=== PATIENT | female | born 1950 | race American Indian/Alaskan Native ===

== ENCOUNTER 2019-01-31 09:30 | Emergency (ER) | payer MEDICARE ==
[2019-01-31 09:43] VITALS: BMI 24.7
--- NOTE | 2019-01-31 10:15 | ED PDOC ---
Arrival/HPI - General Chief Complaint: Upper Extremity Problem/Injury Time Seen by Provider: 01/31/19 09:30 Historian: Patient - History of Present Illness Narrative History of Present Illness (Text): 01/31/19 10:12 68-year-old female presents today with left elbow pain status post injury. Patient states she has been having some elbow pain for the past 3 weeks but yesterday she slipped and hit her elbow on the countertop. Patient is complaining of pain to the lateral aspect of the elbow worse with range of motion. Patient states she took one Tylenol yesterday for pain without improvement. Patient denies fevers or chills. She denies numbness weakness or tingling in the extremity. No other complaints Past Medical History - Provider Review Nursing Documentation Reviewed: Yes - Travel History Have you recently traveled outside [place] w/in the past 3 mons?: No - Reproductive Menopause: Yes - Cardiac Hx Hypertension: Yes - Hematological/Oncological Hx Anemia: Yes - Psychiatric Hx Substance Use: No - Surgical History Hx Open Heart Surgery: Yes Family/Social History - Physician Review Nursing Documentation Reviewed: Yes Family/Social History: Unknown Family HX Smoking Status: Never Smoked Hx Alcohol Use: No Hx Substance Use: No Allergies/Home Meds Allergies/Adverse Reactions: Allergies No Known Allergies Allergy (Verified 01/31/19 09:39) Home Medications: Home Meds Medication Instructions Recorded Confirmed Enalapril Maleate [Vasotec] 10 mg PO DAILY 01/31/19 01/31/19 Ferrous Sulfate [Feosol] 325 mg PO DAILY 01/31/19 01/31/19 Warfarin [Coumadin] 5 mg PO DAILY 01/31/19 01/31/19 Review of Systems - Review of Systems Constitutional: absent: Fatigue, Fevers Respiratory: absent: SOB, Cough Cardiovascular: absent: Chest Pain, Palpitations Gastrointestinal: absent: Abdominal Pain, Nausea, Vomiting Musculoskeletal: Arthralgias. absent: Back Pain Skin: absent: Rash, Pruritis Neurological: absent: Headache, Dizziness Psychiatric: absent: Anxiety, Depression Physical Exam Vital Signs Reviewed: Yes Vital Signs Temp Pulse Resp BP Pulse Ox 01/31/19 09:30 97.8 F 67 15 154/70 H 100 Temperature: Afebrile Blood Pressure: Hypertensive Pulse: Regular Respiratory Rate: Normal Appearance: Positive for: Well-Appearing, Non-Toxic, Comfortable Pain Distress: None Mental Status: Positive for: Alert and Oriented X 3 - Systems Exam Head: Present: Atraumatic Mouth: Present: Moist Mucous Membranes Neck: Present: Normal Range of Motion Respiratory/Chest: Present: Clear to Auscultation, Good Air Exchange. No: Respiratory Distress, Accessory Muscle Use Cardiovascular: Present: Regular Rate and Rhythm, Normal S1, S2. No: Murmurs Upper Extremity: Present: Normal ROM (+ pain with full flexion of elbow. ), NORMAL PULSES, Tenderness (left elbow; + ttp over lateral aspect; no edema, no erythema; no ecchymosis; sensation and distal pulses in tact. cap refill <2. ), Neurovascularly Intact, Capillary Refill < 2s. No: Swelling, Erythema, Deformity Neurological: Present: GCS=15 Skin: Present: Warm, Dry, Normal Color. No: Rashes Psychiatric: Present: Alert, Oriented x 3 Medical Decision Making ED Course and Treatment: 01/31/19 10:14 Patient nontoxic well-appearing in no distress with stable vital signs X-rays of the left elbow; no fracture tramadol PO Patient placed in migdalia wrap; pt reassessment; pt feeling better with medications and migdalia wrap. I discussed all results with patient and her daughter advised to followup with the orthopedist for the next 2 days. Return if symptoms worsen persist or new symptoms develop Patient verbalizes understanding of discharge instructions and need for immediate followup. All aspects of this case were discussed the attending of record. Impression: elbow pain Tramadol; 1 tablet every 6 hours as needed for moderate to severe pain. may cause drowsiness. Rest, ice, compression, elevation Followup with the orthopedist within the next 2 days Followup with primary care physician within the next 2 days Return if any other concerning symptoms develop Reassessment Condition: Re-examined, Improved - RAD Interpretation Radiology Orders: 01/31/19 09:56 ELBOW LEFT 3 VIEWS ROUTINE [RAD] Stat - Medication Orders Current Medication Orders: Discontinued Medications Tramadol HCl (Ultram) 50 mg PO STAT STA Stop: 01/31/19 09:57 Last Admin: 01/31/19 10:03 Dose: 50 mg [facility] Pain Assessment Document 01/31/19 10:03 CD (Rec: 01/31/19 10:03 CD [facility] [place]-[id number]) Pain Reassessment Is this a pain reassessment? No Sleep Is patient sleeping during reassessment? No Presence of Pain Presence of Pain Yes Pain Scale Used Protocol: PSCALES Pain Scale Used Numeric Location Left, Right or Bilateral Right Pain Location Body Site Arm Description Description Intermittent Intensity of Pain at present 9 Aggravating Factors Changing Position Disposition/Present on Arrival - Present on Arrival Any Indicators Present on Arrival: No History of DVT/PE: No History of Uncontrolled Diabetes: No Urinary Catheter: No History of Decub. Ulcer: No History Surgical Site Infection Following: None - Disposition Have Diagnosis and Disposition been Completed?: Yes Diagnosis: Elbow pain Disposition: HOME/ ROUTINE Disposition Time: 10:15 Patient Plan: Discharge Patient Problems: Current Active Problems Problem Status Onset Elbow pain Acute Condition: GOOD Additional Instructions: Tramadol; 1 tablet every 6 hours as needed for moderate to severe pain. may cause drowsiness. Rest, ice, compression, elevation Followup with the orthopedist within the next 2 days Followup with primary care physician within the next 2 days Return if any other concerning symptoms develop Prescriptions: traMADol [Ultram] 50 mg PO Q6H PRN #6 tab PRN Reason: moderate to severe pain Referrals: Jason Winter III, MD [Medical Doctor] - Follow up with primary [facility] [Outside] - Follow up with primary [facility] [place] [Outside] - Follow [facility] with [facility] [Outside] - Follow up with primary Indy Calixto MD [Medical Doctor] - Follow up with primary Forms: [employer] ([place]ian)
--- NOTE | 2019-01-31 10:55 | RAD ---
Date of service: 01/31/2019 PROCEDURE: Radiographs of the left elbow. HISTORY: slipped hitting elbow on counter top COMPARISON: No prior. FINDINGS: BONES: Normal. No fracture. JOINTS: Normal. No osteoarthritis. SOFT TISSUES: Normal. JOINT EFFUSION: None. OTHER FINDINGS: None IMPRESSION: Unremarkable radiographs of the left elbow.
[2019-01-31 11:27] VITALS: BP 140/81; PULSE 79; RESP 16; TEMP 97.7; O2SAT 99
== END 2019-01-31 11:25 | disposition home or self-care (01) ==
LOC: MERGE 09:30 → ED 09:30
DX: M25.522 Pain in left elbow (principal); I10 Essential (primary) hypertension